=== PATIENT | female | born 1965 | race Caucasian/White ===

== ENCOUNTER 2017-03-01 13:43 | Emergency (ER) | payer MEDICARE ==
[~2017-03-01] VITALS: Ht 165.1 cm; Wt 75.8 kg
[~2017-03-01 13:43] MED LIST: ADVAIR 250/5028 PUFF IN; AEROCHAMBER1 DEV IH; ALBUTEROL2 PUFFS/17 IN; AMOXICOT500 MG PO; AURALGAN 14 ML14 ML OT; AZITHROMYCIN250 MG PO; BENZONATATE100 MG PO; BROMFED DM COU473 ML PO; DICYCLOMINE HCL20 MG PO; FLEXERIL10 MG PO; LORTAB 5/500 501 TAB PO; NOMEDS; NOMEDS *; PHENERGAN 25MG.25 M1 PO; PIN-X720.5 MG PO; POTASSIUM CHLO20 ME2 PO; PREDNISONE 20MG20 MG PO; PROAIR HFA0.09 MG/AC IH; PROMETHAZINE-D473 ML PO; RANITIDINE150 M1 PO; ROBINUL 1MG TABL1 MG PO; TAGAMET300 MG PO; TESSALON PERLE100 M1 PO; TESSALON PERLE100 MG PO; VERMOX100 MG PO; ZITHROMAX Z-PA250 M2 PO; ZOFRAN ODT4 MG PO; ZOFRAN4 MG PO; Zofran4 MG PO
--- OUTSIDE RECORDS SUMMARY | 2017-03-01 13:49 | External Medical Summary Rpt | CCD ---
Author Author , PEG RUVALCABA Address Unknown Phone [email or web address] Care Team Providers Care Domestic Helper Name Role Phone Deny Garcia MD, Unavailable Unavailable Deny OLIVEIRA MD, Unavailable Unavailable LITA Patiño MD, Unavailable Unavailable Alpa Patiño MD Purpose Continuity of Care Document - 06-25-2012 through 2016 Problems Code Diagnosis DOS Provider Status 127.4 127.4 03-12-2013 [place] [facility] 300.00 03-12-2013 [place] ANXIETY [facility] [id number] ACUTE 03-12-2013 [place] TONSILLITIS [facility] V14.8 V14.8 03-12-2013 [place] HX-DRUG [facility] ALLERGY [facility] 784.99 784.99 02-13-2013 [place] OTHER [facility] INVOLVING HEAD AND NECK 789.00 789.00 12-22-2012 [place] ABDOMINAL [facility] UNSPECIFIED SITE 789.06 789.06 12-22-2012 [place] ABDOMINAL [facility] PAIN, [facility] EPIGASTRIC Allergies, Adverse Reactions, Alerts Type Drug Allergy Adverse Reaction to Substance Substance Reaction Severity Codeine I-RASH Intermediate Morphine I-RASH Intermediate Medications Na ND Rx Da Fi Fi Am Da Di Ph RX Ph St me C No te ll ll ou ys ag ar # ys at rm s nt no ma ic us Or Da si cy ia de te s n re d AN 24 10 0 No TI 20 -2 PY 80 6- Lo RI 56 20 ng NE 16 13 er -B 2 EN Ac ZO ti CA ve IN E EA R OP SO 00 09 0 No DI 40 -0 UM 97 3- Lo 98 20 ng CH 30 13 er LO 9 RI Ac DE ti ve 0. 9% SO MARY ANNE TI ON Sa 63 09 0 No li 80 -0 ne 70 3- Lo 10 20 ng Fl 07 13 er us 5 h Ac 10 ti ML ve Sy ri ng e Sa 63 08 0 No li 80 -2 ne 70 8- Lo 10 20 ng Fl 07 13 er us 5 h Ac 10 ti ML ve Sy ri ng e SO 00 06 0 No DI 40 -0 UM 97 8- Lo 98 20 ng CH 30 13 er LO 9 RI Ac DE ti ve 0. 9% SO MARY ANNE TI ON ON 00 06 0 No DA 64 -0 NS 16 8- Lo ET 08 20 ng RO 02 13 er N 5 HC Ac L ti 4 ve MG /2 ML AL Sa 63 06 0 No li 80 -0 ne 70 8- Lo 10 20 ng Fl 07 13 er us 5 h Ac 10 ti ML ve Sy ri ng e GI 12 06 0 No 32 -0 CO 22 8- Lo CK 22 20 ng TA 22 13 er IL 2 Ac 60 ti ML ve UD C SO 00 03 0 No DI 40 -0 UM 97 7- Lo 98 20 ng CH 30 13 er LO 3 RI Ac DE ti ve 0. 9% SO MARY ANNE TI ON Sa 63 03 0 No li 80 -0 ne 70 7- Lo 10 20 ng Fl 07 13 er us 5 h Ac 10 ti ML ve Sy ri ng e ON 00 03 0 No DA 64 -0 NS 16 7- Lo ET 08 20 ng RO 02 13 er N 5 HC Ac L ti 4 ve MG /2 ML AL Vital Signs 03-12-2013 10:34 Name Value Interpretat Reference Comment ion Range BP 72 mm[Hg] Diastolic BP Systolic 139 mm[Hg] Heart 73 /min Rate/Pulse O2% 96 % Respiratory 20 /min Rate 02-13-2013 15:46 Name Value Interpretat Reference Comment ion Range BP 85 mm[Hg] Diastolic BP Systolic 143 mm[Hg] Heart 90 /min Rate/Pulse O2% 96 % Respiratory 20 /min Rate 02-13-2013 15:43 Name Value Interpretat Reference Comment ion Range Body 99.0 [degF] Temperature BP 90 mm[Hg] Diastolic BP Systolic 121 mm[Hg] Heart 93 /min Rate/Pulse O2% 96 % Respiratory 20 /min Rate 12-22-2012 18:49 Name Value Interpretat Reference Comment ion Range Body 98.3 [degF] Temperature BP 72 mm[Hg] Diastolic BP Systolic 146 mm[Hg] Heart 64 /min Rate/Pulse O2% 100 % Respiratory 17 /min Rate 12-22-2012 18:48 Name Value Interpretat Reference Comment ion Range Body 98.3 [degF] Temperature 12-22-2012 17:17 Name Value Interpretat Reference Comment ion Range O2% 97 % Respiratory 18 /min Rate 12-22-2012 17:00 Name Value Interpretat Reference Comment ion Range BP 81 mm[Hg] Diastolic BP Systolic 136 mm[Hg] Heart 74 /min Rate/Pulse 12-16-2012 10:27 Name Value Interpretat Reference Comment ion Range Body 98.3 [degF] Temperature BP 76 mm[Hg] Diastolic BP Systolic 131 mm[Hg] Heart 58 /min Rate/Pulse O2% 97 % Respiratory 18 /min Rate 12-16-2012 10:19 Name Value Interpretat Reference Comment ion Range Body 98.3 [degF] Temperature 12-16-2012 09:08 Name Value Interpretat Reference Comment ion Range BP 82 mm[Hg] Diastolic BP Systolic 136 mm[Hg] Heart 62 /min Rate/Pulse O2% 98 % Respiratory 20 /min Rate 09-26-2012 18:16 Name Value Interpretat Reference Comment ion Range Body 98 [degF] Temperature BP 74 mm[Hg] Diastolic BP Systolic 137 mm[Hg] Heart 61 /min Rate/Pulse O2% 98 % Respiratory 18 /min Rate 09-26-2012 17:53 Name Value Interpretat Reference Comment ion Range BP 73 mm[Hg] Diastolic BP Systolic 124 mm[Hg] Heart 56 /min Rate/Pulse O2% 100 % Respiratory 18 /min Rate 06-25-2012 10:27 Name Value Interpretat Reference Comment ion Range BP 69 mm[Hg] Diastolic BP Systolic 122 mm[Hg] Heart 66 /min Rate/Pulse O2% 97 % Respiratory 18 /min Rate 06-25-2012 10:26 Name Value Interpretat Reference Comment ion Range Body 99.0 [degF] Temperature 06-25-2012 09:31 Name Value Interpretat Reference Comment ion Range BP 67 mm[Hg] Diastolic BP Systolic 105 mm[Hg] Heart 76 /min Rate/Pulse O2% 97 % Respiratory 18 /min Rate Results Labs Lab Lab Date Result Refere Interp Status Commen Order Detail nces retati t Range on COMPREHENSIVE METABOLIC PANEL (12-22-2012 17:10) Glucose 99 74-106 complet 013 mg/dL ed Bld-mCn 17:10 c BUN 09-03-2 17 7-18 complet Bld-mCn 013 mg/dL ed c 17:10 Creat 1.0 0.6-1.0 complet SerPl-m 013 mg/dL ed Cnc 17:10 GFR 60 59- complet (ESTIMA 013 ML/MIN ed FABIÁN) 17:10 Sodium 143 136-145 complet SerPl-s 013 mmoL/L ed Cnc 17:10 Potassi 3.6 3.5-5.1 complet um 013 mmoL/L ed SerPl-s 17:10 Cnc Chlorid 105 98-107 complet e 013 mmoL/L ed SerPl-s 17:10 Cnc CO2 29 21.0-32 complet SerPl-s 013 mmoL/L .0 ed Cnc 17:10 Calcium 8.6 8.5-10. complet 013 mg/dL 1 ed SerPl-m 17:10 Cnc Prot 7.7 6.4-8.2 complet SerPl-m 013 gm/dL ed Cnc 17:10 Albumin 3.7 3.4-5.0 complet 013 gm/dL ed SerPl-m 17:10 Cnc Globuli 4.0 1.3-3.2 complet n 013 gm/dL ed Ser-mCn 17:10 c Albumin 0.9 UNK 1.1-1.8 complet /Glob 013 ed SerPl-m 17:10 Rto Bilirub 0.2 0.2-1.0 complet 013 mg/dL ed SerPl-m 17:10 Cnc AST 17 U/L 15-37 complet SerPl-c 013 ed Cnc 17:10 ALT 44 U/L 30-65 complet SerPl-c 013 ed Cnc 17:10 ALP 12-22- 102 U/L 50-136 complet SerPl-c 013 ed Cnc 17:10 LIPASE (12-22-2012 17:10) LIPASE 235 U/L 73-393 complet 013 ed 17:10 CBC with AUTO DIFF (12-22-2012 17:10) WBC # 03-2 8.1 4.8-10. complet Bld 013 K/MM3 8 ed Auto 17:10 RBC # 09-03-2 4.43 4.2-5.4 complet Bld 013 M/mm3 ed Auto 17:10 Hgb 09-03-2 13.9 12.2-16 complet Bld-mCn 013 g/dL .2 ed c 17:10 Hct Fr -03-2 41.3 % 37.0-47 complet Bld 013 .0 ed 17:10 MCV RBC 09-03-2 93.3 fl 82.2-97 complet 013 .8 ed 17:10 MCH RBC -03-2 31.4 pg 27-31.2 complet Qn 013 ed Auto 17:10 MEAN 09-03-2 33.6 31.8-35 complet CORPUSC 013 g/dl .4 ed ULAR 17:10 HGB CONC RDW RBC -03-2 14.6 % 11.5-17 complet Auto 013 .5 ed 17:10 Platele -03-2 235 142-424 complet t Bld 013 K/mm3 ed Ql 17:10 Manual MEAN 12-22-2 7.8 fl 7.4-10. complet PLATELE 013 4 ed T 17:10 VOLUME Granulo 09-03-2 66.2 % 37.0-80 complet cytes 013 .0 ed Fr Bld 17:10 Auto LYMPH % 09-03-2 26.3 % 10-50.0 complet 013 ed 17:10 Monocyt 09-03-2 5.4 % 1.7-9.3 complet es Fr 013 ed Bld 17:10 Auto Eosinop 09-03-2 1.7 % 0.1-12. complet hil Fr 013 0 ed Bld 17:10 Auto Basophi 09-03-2 0.5 % 0.1-2.0 complet ls Fr 013 ed Bld 17:10 Auto Granulo 09-03-2 5.4 1.8-7.8 complet cytes # 013 K/mm3 ed Bld 17:10 Auto Lymphoc 09-03-2 2.1 0.7-4.5 complet ytes Fr 013 K/mm3 ed Bld 17:10 Auto Monocyt 09-03-2 0.4 0.1-1.0 complet es # 013 K/mm3 ed Bld 17:10 Auto Eosinop 09-03-2 0.1 0.0-0.4 complet hil # 013 K/mm3 ed Bld 17:10 Auto Basophi -03-2 0.0 0-0.2 complet ls # 013 K/MM3 ed Bld 17:10 Auto URINALYSIS/COMPLETE (12-22-2012 16:20) URINE --2 YELLOW YELLOW complet COLOR 013 ed 16:20 URINE --2 CLEAR CLEAR complet APPEARA 013 ed NCE 16:20 URINE --2 NEGATIV NEG complet GLUCOSE 013 E ed - 16:20 DIPSTIC K URINE --2 NEGATIV NEG complet BILIRUB 013 E ed IN - 16:20 DIPSTIC K URINE --2 NEGATIV NEG complet KETONE 013 E mg/dL ed 16:20 URINE --2 Greater 1.005-1 complet SPECIFI 013 than .030 ed C 16:20 or GRAVITY equal to 1.030 URINE 12-22-2 3+ NEG complet BLOOD 013 ed 16:20 URINE 12-22-2 6.0 UNK 5.0-8.5 complet PH 013 ed 16:20 URINE --2 NEGATIV NEG complet PROTEIN 013 E mg/dL ed - 16:20 DIPSTIC K URINE --2 0.2 NEG complet UROBILI 013 E.U./dL ed NOGEN - 16:20 DIPSTIC K URINE --2 NEGATIV NEG complet NITRATE 013 E ed - 16:20 DIPSTIC K URINE -03-2 NEGATIV NEG complet LEUK 013 E ed ESTERAS 16:20 E URINE 12-22-2 10-20 0 complet RBC 013 rbc/hpf ed 16:20 URINE -03-2 5-10 0-5 complet SQUAMOU 013 #/hpf ed S CELLS 16:20 URINE 12-22-2 TRACE O complet BACTERI 013 ed A 16:20 OCCULT BLOOD (12-22-2012 16:20) Hemocul 12-22-2 NEGATIV NEG complet t sp1 013 E ed Stl Ql 16:20 COMPREHENSIVE METABOLIC PANEL (12-16-2012 09:35) Glucose 86 74-106 complet 013 mg/dL ed Bld-mCn 09:35 c BUN 18 7-18 complet Bld-mCn 013 mg/dL ed c 09:35 Creat 1.0 0.6-1.0 complet SerPl-m 013 mg/dL ed Cnc 09:35 ESTIMAT 72 50-200 complet ED 013 ML/MIN ed CREATIN 09:35 INE CLEARAN CE GFR 60 59- complet (ESTIMA 013 ML/MIN ed FABIÁN) 09:35 Sodium 142 136-145 complet SerPl-s 013 mmoL/L ed Cnc 09:35 Potassi 3.6 3.5-5.1 complet um 013 mmoL/L ed SerPl-s 09:35 Cnc Chlorid 106 98-107 complet e 013 mmoL/L ed SerPl-s 09:35 Cnc CO2 29 21.0-32 complet SerPl-s 013 mmoL/L .0 ed Cnc 09:35 Calcium 8.8 8.5-10. complet 013 mg/dL 1 ed SerPl-m 09:35 Cnc Prot 7.8 6.4-8.2 complet SerPl-m 013 gm/dL ed Cnc 09:35 Albumin 3.9 3.4-5.0 complet 013 gm/dL ed SerPl-m 09:35 Cnc Globuli 3.9 1.3-3.2 complet n 013 gm/dL ed Ser-mCn 09:35 c Albumin 1.0 UNK 1.1-1.8 complet /Glob 013 ed SerPl-m 09:35 Rto Bilirub 0.5 0.2-1.0 complet 013 mg/dL ed SerPl-m 09:35 Cnc AST 14 U/L 15-37 complet SerPl-c 013 ed Cnc 09:35 ALT 37 U/L 30-65 complet SerPl-c 013 ed Cnc 09:35 ALP 99 U/L 50-136 complet SerPl-c 013 ed Cnc 09:35 CBC with AUTO DIFF (12-16-2012 09:35) WBC # 12-16-2 5.9 4.8-10. complet Bld 013 K/mm3 8 ed Auto 09:35 RBC # 12-16-2 4.39 4.2-5.4 complet Bld 013 M/mm3 ed Auto 09:35 Hgb 12-16-2 12.7 12.2-16 complet Bld-mCn 013 g/dL .2 ed c 09:35 Hct Fr 12-16-2 40.1 % 37.0-47 complet Bld 013 .0 ed 09:35 MCV RBC 12-16- 91.4 fL 82.2-97 complet 013 .8 ed 09:35 MCH RBC 12-16-2 28.9 pg 27-31.2 complet Qn 013 ed Auto 09:35 MEAN 12-16- 31.7 31.8-35 complet CORPUSC 013 g/dl .4 ed ULAR 09:35 HGB CONC RDW RBC 12-16-2 14.2 % 11.5-17 complet Auto 013 .5 ed 09:35 Platele 12-16- 235 142-424 complet t Bld 013 K/mm3 ed Ql 09:35 Manual Granulo 12-16-2 69.3 % 37.0-80 complet cytes 013 .0 ed Fr Bld 09:35 Auto LYMPH % 12-16-2 26.5 % 10-50.0 complet 013 ed 09:35 Monocyt 12-16-2 4.2 % 1.7-9.3 complet es Fr 013 ed Bld 09:35 Auto Granulo 12-16-2 4.1 1.8-7.8 complet cytes # 013 K/mm3 ed Bld 09:35 Auto Lymphoc 12-16-2 1.6 0.7-4.5 complet ytes Fr 013 K/mm3 ed Bld 09:35 Auto Monocyt 12-16-2 0.2 0.1-1.0 complet es # 013 K/mm3 ed Bld 09:35 Auto URINALYSIS/COMPLETE (12-16-2012 09:15) URINE 12-16- YELLOW YELLOW complet COLOR 013 ed 09:15 URINE CLEAR CLEAR complet APPEARA 013 ed NCE 09:15 URINE 12-16-2 NEGATIV NEG complet GLUCOSE 013 E ed - 09:15 DIPSTIC K URINE NEGATIV NEG complet BILIRUB 013 E ed IN - 09:15 DIPSTIC K URINE 12-16-2 NEGATIV NEG complet KETONE 013 E mg/dL ed 09:15 URINE 12-16-2 Greater 1.005-1 complet SPECIFI 013 than .030 ed C 09:15 or GRAVITY equal to 1.030 URINE 12-16-2 3+ NEG complet BLOOD 013 ed 09:15 URINE 12-16-2 6.0 UNK 5.0-8.5 complet PH 013 ed 09:15 URINE 12-16-2 NEGATIV NEG complet PROTEIN 013 E mg/dL ed - 09:15 DIPSTIC K URINE 12-16-2 0.2 NEG complet UROBILI 013 E.U./dL ed NOGEN - 09:15 DIPSTIC K URINE 28-2 NEGATIV NEG complet NITRATE 013 E ed - 09:15 DIPSTIC K URINE 28-2 NEGATIV NEG complet LEUK 013 E ed ESTERAS 09:15 E URINE 28-2 TNTC 0 complet RBC 013 rbc/hpf ed 09:15 URINE 12-16-2 3-5 O complet WBC 013 wbc/hpf ed 09:15 URINE 12-16-2 3-5 0-5 complet SQUAMOU 013 #/hpf ed S CELLS 09:15 B-HCG Ur Ql (09-26-2012 17:10) B-HCG 06-08-2 NEGATIV NEG complet Ur Ql 013 E ed 17:10 URINALYSIS/COMPLETE (09-26-2012 17:10) URINE 08-2 YELLOW YELLOW complet COLOR 013 ed 17:10 URINE 08-2 SL CLEAR complet APPEARA 013 CLOUDY ed NCE 17:10 URINE 0608-2 NEGATIV NEG complet GLUCOSE 013 E ed - 17:10 DIPSTIC K URINE 06-08-2 NEGATIV NEG complet BILIRUB 013 E ed IN - 17:10 DIPSTIC K URINE 06-08-2 NEGATIV NEG complet KETONE 013 E mg/dL ed 17:10 URINE 06-08-2 Greater 1.005-1 complet SPECIFI 013 than .030 ed C 17:10 or GRAVITY equal to 1.030 URINE 06-08-2 3+ NEG complet BLOOD 013 ed 17:10 URINE 06-08-2 5.5 UNK 5.0-8.5 complet PH 013 ed 17:10 URINE 06-08-2 NEGATIV NEG complet PROTEIN 013 E mg/dL ed - 17:10 DIPSTIC K URINE 06-08-2 0.2 NEG complet UROBILI 013 E.U./dL ed NOGEN - 17:10 DIPSTIC K URINE 2 NEGATIV NEG complet NITRATE 013 E ed - 17:10 DIPSTIC K URINE 2 TRACE NEG complet LEUK 013 ed ESTERAS 17:10 E URINE TNTC 0 complet RBC 013 rbc/hpf ed 17:10 URINE 3-5 O complet WBC 013 wbc/hpf ed 17:10 URINE 3-5 0-5 complet SQUAMOU 013 #/hpf ed S CELLS 17:10 URINE 1+ O complet BACTERI 013 ed A 17:10 COMPREHENSIVE METABOLIC PANEL (09-26-2012 17:05) Glucose 94 74-106 complet 013 mg/dL ed Bld-mCn 17:05 c BUN 15 7-18 complet Bld-mCn 013 mg/dL ed c 17:05 Creat 1.0 0.6-1.0 complet SerPl-m 013 mg/dL ed Cnc 17:05 ESTIMAT 74 50-200 complet ED 013 ML/MIN ed CREATIN 17:05 INE CLEARAN CE GFR 60 59- complet (ESTIMA 013 ML/MIN ed FABIÁN) 17:05 Sodium 139 136-145 complet SerPl-s 013 mmoL/L ed Cnc 17:05 Potassi 3.7 3.5-5.1 complet um 013 mmoL/L ed SerPl-s 17:05 Cnc Chlorid 102 98-107 complet e 013 mmoL/L ed SerPl-s 17:05 Cnc CO2 29 21.0-32 complet SerPl-s 013 mmoL/L .0 ed Cnc 17:05 Calcium 8.7 8.5-10. complet 013 mg/dL 1 ed SerPl-m 17:05 Cnc Prot 8.1 6.4-8.2 complet SerPl-m 013 gm/dL ed Cnc 17:05 Albumin 4.1 3.4-5.0 complet 013 gm/dL ed SerPl-m 17:05 Cnc Globuli 06-08-2 4.0 1.3-3.2 complet n 013 gm/dL ed Ser-mCn 17:05 c Albumin 08-2 1.0 UNK 1.1-1.8 complet /Glob 013 ed SerPl-m 17:05 Rto Bilirub 09-26-2 0.1 0.2-1.0 complet 013 mg/dL ed SerPl-m 17:05 Cnc AST 08-2 26 U/L 15-37 complet SerPl-c 013 ed Cnc 17:05 ALT 08-2 42 U/L 30-65 complet SerPl-c 013 ed Cnc 17:05 ALP 08-2 109 U/L 50-136 complet SerPl-c 013 ed Cnc 17:05 LIPASE (09-26-2012 17:05) LIPASE 08-2 223 U/L 73-393 complet 013 ed 17:05 CBC with AUTO DIFF (09-26-2012 17:05) WBC # 06-08-2 7.9 4.8-10. complet Bld 013 K/MM3 8 ed Auto 17:05 RBC # 06-08-2 4.63 4.2-5.4 complet Bld 013 M/mm3 ed Auto 17:05 Hgb -08-2 14.0 12.2-16 complet Bld-mCn 013 g/dL .2 ed c 17:05 Hct Fr 08-2 42.6 % 37.0-47 complet Bld 013 .0 ed 17:05 MCV RBC 08-2 92.1 fl 82.2-97 complet 013 .8 ed 17:05 MCH RBC 08-2 30.2 pg 27-31.2 complet Qn 013 ed Auto 17:05 MEAN 08-2 32.8 31.8-35 complet CORPUSC 013 g/dl .4 ed ULAR 17:05 HGB CONC RDW RBC -08-2 13.3 % 11.5-17 complet Auto 013 .5 ed 17:05 Platele -08-2 262 142-424 complet t Bld 013 K/mm3 ed Ql 17:05 Manual MEAN -08-2 8.1 fl 7.4-10. complet PLATELE 013 4 ed T 17:05 VOLUME Granulo 08-2 62.3 % 37.0-80 complet cytes 013 .0 ed Fr Bld 17:05 Auto LYMPH % 06-08-2 29.8 % 10-50.0 complet 013 ed 17:05 Monocyt 06-08-2 4.9 % 1.7-9.3 complet es Fr 013 ed Bld 17:05 Auto Eosinop 06-08-2 2.5 % 0.1-12. complet hil Fr 013 0 ed Bld 17:05 Auto Basophi 06-08-2 0.4 % 0.1-2.0 complet ls Fr 013 ed Bld 17:05 Auto Granulo 06-08-2 4.9 1.8-7.8 complet cytes # 013 K/mm3 ed Bld 17:05 Auto Lymphoc 06-08-2 2.4 0.7-4.5 complet ytes Fr 013 K/mm3 ed Bld 17:05 Auto Monocyt 06-08-2 0.4 0.1-1.0 complet es # 013 K/mm3 ed Bld 17:05 Auto Eosinop 06-08-2 0.2 0.0-0.4 complet hil # 013 K/mm3 ed Bld 17:05 Auto Basophi 06-08-2 0.0 0-0.2 complet ls # 013 K/MM3 ed Bld 17:05 Auto COMPREHENSIVE METABOLIC PANEL (06-25-2012 09:50) Glucose 100 74-106 complet 013 mg/dL ed Bld-mCn 09:50 c BUN 15 7-18 complet Bld-mCn 013 mg/dL ed c 09:50 Creat 1.2 0.6-1.0 complet SerPl-m 013 mg/dL ed Cnc 09:50 ESTIMAT 61 50-200 complet ED 013 ML/MIN ed CREATIN 09:50 INE CLEARAN CE GFR 49 59- complet (ESTIMA 013 ML/MIN ed FABIÁN) 09:50 Sodium 139 136-145 complet SerPl-s 013 mmoL/L ed Cnc 09:50 Potassi 3.0 3.5-5.1 complet um 013 mmoL/L ed SerPl-s 09:50 Cnc Chlorid 100 98-107 complet e 013 mmoL/L ed SerPl-s 09:50 Cnc CO2 07-2 29 21.0-32 complet SerPl-s 013 mmoL/L .0 ed Cnc 09:50 Calcium 03-07-2 8.4 8.5-10. complet 013 mg/dL 1 ed SerPl-m 09:50 Cnc Prot 07-2 7.9 6.4-8.2 complet SerPl-m 013 gm/dL ed Cnc 09:50 Albumin -07-2 3.9 3.4-5.0 complet 013 gm/dL ed SerPl-m 09:50 Cnc Globuli 07-2 4.0 1.3-3.2 complet n 013 gm/dL ed Ser-mCn 09:50 c Albumin 06-25-2 1.0 UNK 1.1-1.8 complet /Glob 013 ed SerPl-m 09:50 Rto Bilirub 06-25-2 0.4 0.2-1.0 complet 013 mg/dL ed SerPl-m 09:50 Cnc AST 07-2 30 U/L 15-37 complet SerPl-c 013 ed Cnc 09:50 ALT 07-2 50 U/L 30-65 complet SerPl-c 013 ed Cnc 09:50 ALP -07-2 83 U/L 50-136 complet SerPl-c 013 ed Cnc 09:50 LIPASE (06-25-2012 09:50) LIPASE 0307-2 233 U/L 73-393 complet 013 ed 09:50 CBC with AUTO DIFF (06-25-2012 09:50) WBC # 03-07-2 3.5 4.8-10. complet Bld 013 K/MM3 8 ed Auto 09:50 RBC # 03-07-2 4.81 4.2-5.4 complet Bld 013 M/mm3 ed Auto 09:50 Hgb 07-2 14.5 12.2-16 complet Bld-mCn 013 g/dL .2 ed c 09:50 Hct Fr 06-25-2 43.5 % 37.0-47 complet Bld 013 .0 ed 09:50 MCV RBC 06-25-2 90.4 fl 82.2-97 complet 013 .8 ed 09:50 MCH RBC 06-25-2 30.2 pg 27-31.2 complet Qn 013 ed Auto 09:50 MEAN 03-07-2 33.4 31.8-35 complet CORPUSC 013 g/dl .4 ed ULAR 09:50 HGB CONC RDW RBC -07-2 13.2 % 11.5-17 complet Auto 013 .5 ed 09:50 Platele 03-07-2 211 142-424 complet t Bld 013 K/mm3 ed Ql 09:50 Manual MEAN 06-25-2 7.8 fl 7.4-10. complet PLATELE 013 4 ed T 09:50 VOLUME Granulo -07-2 63.4 % 37.0-80 complet cytes 013 .0 ed Fr Bld 09:50 Auto LYMPH % 03-07-2 22.6 % 10-50.0 complet 013 ed 09:50 Monocyt 03-07-2 13.0 % 1.7-9.3 complet es Fr 013 ed Bld 09:50 Auto Eosinop 03-07-2 0.6 % 0.1-12. complet hil Fr 013 0 ed Bld 09:50 Auto Basophi 03-07-2 0.3 % 0.1-2.0 complet ls Fr 013 ed Bld 09:50 Auto Granulo 03-07-2 2.2 1.8-7.8 complet cytes # 013 K/mm3 ed Bld 09:50 Auto Lymphoc -07-2 0.8 0.7-4.5 complet ytes Fr 013 K/mm3 ed Bld 09:50 Auto Monocyt 03-07-2 0.5 0.1-1.0 complet es # 013 K/mm3 ed Bld 09:50 Auto Eosinop 03-07-2 0.0 0.0-0.4 complet hil # 013 K/mm3 ed Bld 09:50 Auto Basophi 03-07-2 0.0 0-0.2 complet ls # 013 K/MM3 ed Bld 09:50 Auto URINALYSIS/COMPLETE (06-25-2012 09:30) URINE 06-25-2 YELLOW YELLOW complet COLOR 013 ed 09:30 URINE 06-25-2 SL CLEAR complet APPEARA 013 CLOUDY ed NCE 09:30 URINE 06-25-2 NEGATIV NEG complet GLUCOSE 013 E ed - 09:30 DIPSTIC K URINE 2 1+ NEG complet BILIRUB 013 ed IN - 09:30 DIPSTIC K URINE 03-07-2 NEGATIV NEG complet KETONE 013 E mg/dL ed 09:30 URINE Greater 1.005-1 complet SPECIFI 013 than .030 ed C 09:30 or GRAVITY equal to 1.030 URINE 06-25-2 3+ NEG complet BLOOD 013 ed 09:30 URINE 06-25-2 5.5 UNK 5.0-8.5 complet PH 013 ed 09:30 URINE 1+ NEG complet PROTEIN 013 mg/dL ed - 09:30 DIPSTIC K URINE 06-25-2 0.2 NEG complet UROBILI 013 E.U./dL ed NOGEN - 09:30 DIPSTIC K URINE NEGATIV NEG complet NITRATE 013 E ed - 09:30 DIPSTIC K URINE NEGATIV NEG complet LEUK 013 E ed ESTERAS 09:30 E URINE 06-25-2 5-10 0 complet RBC 013 rbc/hpf ed 09:30 URINE OCC O complet WBC 013 wbc/hpf ed 09:30 URINE OCC 0-5 complet SQUAMOU 013 #/hpf ed S CELLS 09:30 URINE 2 OCC O complet BACTERI 013 ed A 09:30 Encounters Encounter Start End Date Code Location Performer Type Date Emergency JAIME Garcia MD (ER) 3 09:10 3 10:34 [facility] Emergency JAIME Patiño MD (ER) 3 15:37 3 15:46 [facility] Emergency JAIME OLIVEIRA MD (ER) 3 16:17 3 18:49 [facility] Emergency JAIME OLIVEIRA MD (ER) 3 08:36 3 10:36 [facility] Emergency JAIME Patiño MD (ER) 3 16:56 3 18:25 [facility] Emergency JAIME Angel (ER) 3 09:23 3 10:27 [facility] [place]
--- OUTSIDE RECORDS SUMMARY | 2017-03-01 13:49 | External Medical Summary Rpt | CCD ---
Author Author , PEG RUVALCABA Address Unknown Phone [email or web address] Care Team Providers Care Traffic Administrator Name Role Phone Deny Garcia MD, Unavailable Unavailable Deny OLIVEIRA MD, Unavailable Unavailable LITA Patiño MD, Unavailable Unavailable Alpa Patiño MD Purpose Continuity of Care Document - 06-25-2012 through 2016 Problems Code Diagnosis DOS Provider Status 127.4 127.4 03-12-2013 [place] [facility] 300[facility]00 03-12-2013 [place] ANXIETY [facility] 463 463 ACUTE 03-12-2013 [place] TONSILLITIS [facility] V14.8 V14.8 03-12-2013 [place] HX-DRUG [facility] ALLERGY [facility] 784.99 784.99 02-13-2013 [place] OTHER [facility] INVOLVING HEAD AND NECK 789.00 789.00 12-22-2012 [place] ABDOMINAL [facility] UNSPECIFIED SITE 789.06 789.06 12-22-2012 [place] ABDOMINAL [facility] PAIN, [facility] EPIGASTRIC Allergies, Adverse Reactions, Alerts Type [...] Garcia MD (ER) 3 09:10 3 10:34 [facility] Emergency JAIME Patiño MD (ER) 3 15:37 3 15:46 [facility] Emergency JAIME OLIVEIRA MD (ER) 3 16:17 3 18:49 [facility] Emergency JAIME OLIVEIRA MD (ER) 3 08:36 3 10:36 [facility] Emergency JAIME Patiño MD (ER) 3 16:56 3 18:25 [facility] Emergency JAIME Angel (ER) 3 09:23 3 10:27 [facility] [place]
--- OUTSIDE RECORDS SUMMARY | 2017-03-01 13:50 | External Medical Summary Rpt | CCD ---
Author Author [employer] Organization [employer] Address Unknown Phone Unavailable Purpose Continuity of Care Document - through 2016
--- OUTSIDE RECORDS SUMMARY | 2017-03-01 13:50 | External Medical Summary Rpt | CCD ---
Demographics Preferred Language Gu[place]ian Marital Status Unknown Shinto Affiliation Unknown Race Unknown Ethnic Group Unknown Author Author , ARNOL RUVALCABA Address Unknown Phone Immunization No patient found.
--- OUTSIDE RECORDS SUMMARY | 2017-03-01 13:50 | External Medical Summary Rpt | CCD ---
Demographics Preferred Language Stateless Marital Status Unknown Sabianism Affiliation Unknown Race Unknown Ethnic Group Unknown Author Author , ARNOL RUVALCABA Address Unknown Phone Immunization No patient found.
--- NOTE | 2017-03-01 14:36 | [facility] Report ---
History of Present Issue Date/Time Seen by Provider 03/01/17 1435 Visit Reason Pt arrived:Walked Presenting Problem:C/O RASH ON NECK X1 WEEK THAT ITCHES AND MELÉNDEZ Location if Accident: Onset of symptoms date/time:/ or onset unknown for:MEDICAL HX UNKNOWN Have you (or family members/close friends) recently traveled outside the [place]? N If Yes, where/when: Have you had exposure to infectious disease within the past month? TB? Other? Specify: Source patient, RN notes reviewed Exam Limitations no limitations Comment Itchy rash on back of neck X 1 week. diagnosed with shingles earlier today. ALLERGIES Coded Allergies: codeine (Intermediate, I-RASH 03/31/15) morphine (Intermediate, I-RASH 03/31/15) Home Medications Active Scripts Benzonatate (Tessalon Perle) 100 MG PO TID #15 SGL Prov: 05/01/16 Promethazine/Dextromethorphan (Promethazine-Dm Solution) 1-2 TSP PO QIDP PRN COUGH #12 OZ Ref 1 Prov: 05/01/16 FLUTICASONE/SALMETEROL (Advair 250-50 Diskus) 1 PUFFS IN Q12H6 #1 Ref 2 Prov: 05/01/16 Albuterol Sulfate (Proair Hfa) 2 PUFFS IH Q6H6 PRN WHEEZING #1 INH Prov: 05/01/16 History Medical History General CAD? No Angina: No SD: No Hypertension? No Hyperlipidemia? No CHF? No DVT? No PE? No COPD? No Asthma? Yes Anemia? No GERD? No Gastric ulcers? No GI Bleed? No Hernia? No Thyroid Problems? No Hypothyroidism? No CVA? No Seizures? No Diabetes? No Renal Insuffiency? No UTI? No Stones? No BPH? No GB Disease: No Nephritic Syndrome? No Asplenia? No Hepatitis? No Sickle Cell Disease? No Arthritis? No Migraines? No Cataracts? No Glaucoma? No MRSA? No HIV? No TB? No Anxiety? No Depression? No Cancer? No More? No Immunization HX DT/Tetanus < 1 Year Ago Flu Refused Pneumonia Refuses Surgical Hx Previous Surgery?Y X 2 L. LEG SURGERY TUBAL LIGATION Family History Family HX Diabetes No CAD No Hypertension No Hyperlipidemia No Cancer Yes TB No Social History Smoking Hx Smoker: Never Smoker Tobacco: No Alcohol Alcohol: No Review of Systems All Other Systems Reviewed and Negative Skin rash Physical Exam Vital Signs Vital Signs Date Time Temp Pulse Resp B/P Pulse O2 O2 Flow FiO2 Ox Delivery Rate 03/01 1413 97.9 60 20 120/89 100 General Appearance normal appearance, no apparent distress Ear, Nose, Throat hearing grossly normal, normal ENT inspection Respiratory Status No: respiratory distress, trachea midline, chest symmetrical. Lung Sounds bilateral: normal breath sounds, lungs clear. Cardiovascular normal exam, regular rate/rhythm, no peripheral edema, no gallop, no JVD, no murmur, no rub Extremities non-tender, normal range of motion, normal inspection, normal capillary refill Neurologic alert, normal exam, oriented x 3 Mental status normal mood/affect Skin rash, scattered small erythematous papules posterior neck Medical Decision Making LABS/Meds/Orders Pt receiving controlled substance in ED? No Departure Departure Time of Disposition 1441 Disposition DC Home or Self Care(routine) Clinical Impression Primary Impression: Contact dermatitis Qualifiers: Contact dermatitis type: irritant Contact dermatitis trigger: detergents Qualified Code: L24.0 - Irritant contact dermatitis due to detergents Condition STABLE Referrals Geoffrey RAY,Kendall (Family) Patient Instructions DI for Contact Dermatitis Discharge Counseling Counseled pt/family regarding diagnosis, medications/RX, home care Prescriptions Current Visit Scripts Triamcinolone Acetonide (Triamcinolon 0.1% Cr, 15GM) 1 CON TP TIDP PRN rash #30 GM at 1444
[2017-03-01] MEDS ORDERED: TRIAMCINOLON 0.15 GM TP (14:44)
[2017-03-01 14:48] VITALS: BP 120/89
== END 2017-03-01 14:50 | disposition home or self-care (01) ==
LOC: UTC 13:43
DX: L24.0 Irritant contact dermatitis due to detergents (principal); J45.909 Unspecified asthma, uncomplicated